=== PATIENT | female | born 1970 | race Caucasian/White ===

== ENCOUNTER 2018-02-10 08:15 | Outpatient (CLI) | payer BC | END 2018-02-10 08:16 | disposition home or self-care (01) | LOC: BICMAMMO 08:15 | PROVIDERS: ATTEND Family Medicine | DX: Z12.31 Encounter for screening mammogram for malignant neoplasm of breast (principal); Z80.3 Family history of malignant neoplasm of breast | CPT/HCPCS: 77063; 77067 ==

== ENCOUNTER 2019-02-15 07:51 | Outpatient (CLI) | payer BC ==
--- NOTE | 2019-02-15 08:32 | MMO ---
Bilateral MAMMO Bilat Screen [facility]. CLINICAL HISTORY: Patient is 48 years old and is seen for screening. The patient has no personal history of cancer. VIEWS: The views performed were: bilateral craniocaudal with tomosynthesis and bilateral mediolateral oblique with tomosynthesis. FILMS COMPARED: The present examination has been compared to prior imaging studies performed at [facility] on 03/10/2011, 11/11/2013, 01/15/2016, 01/19/2017 and 02/10/2018. MAMMOGRAM FINDINGS: There are scattered fibroglandular densities. There are benign appearing calcifications seen in both breasts. There are no suspicious masses, suspicious calcifications, or new areas of architectural distortion. IMPRESSION: THERE IS NO MAMMOGRAPHIC EVIDENCE OF MALIGNANCY. A ROUTINE FOLLOW-UP MAMMOGRAM IN 1 YEAR IS RECOMMENDED. THE RESULTS OF THIS EXAM WERE SENT TO THE PATIENT. ACR BI-RADS Category 2 - Benign finding MAMMOGRAPHY NOTE: 1. A negative mammogram report should not delay a biopsy if a dominant of clinically suspicious mass is present. 2. Approximately 10% to 15% of breast cancers are not detected by mammography. 3. Adenosis and dense breasts may obscure an underlying neoplasm.
== END 2019-02-15 07:52 | disposition home or self-care (01) ==
LOC: BICMAMMO 07:51
PROVIDERS: ATTEND Family Medicine Sports Medicine
DX: Z12.31 Encounter for screening mammogram for malignant neoplasm of breast (principal)
CPT/HCPCS: 77063; 77067

== ENCOUNTER 2021-10-18 12:00 | Outpatient (CLI) | payer BC | END 2021-10-18 12:01 | disposition home or self-care (01) | LOC: CT 12:00 | PROVIDERS: ATTEND Family Medicine Sports Medicine | DX: M54.6 Pain in thoracic spine (principal) | CPT/HCPCS: 74176 ==

== ENCOUNTER 2023-12-15 09:05 | Outpatient (CLI) | payer BC | END 2023-12-15 09:06 | disposition home or self-care (01) | LOC: SCSMRI 09:05 | PROVIDERS: ATTEND Otolaryngology | DX: J32.1 Chronic frontal sinusitis (principal); H74.8X2 Other specified disorders of left middle ear and mastoid | CPT/HCPCS: 70543 ==

== ENCOUNTER 2024-04-12 10:07 | Outpatient (CLI) | payer BC | END 2024-04-12 10:08 | disposition home or self-care (01) | LOC: SCSRAD 10:07 | PROVIDERS: ATTEND Nurse Practitioner Family | DX: S69.92XA Unspecified injury of left wrist, hand and finger(s), initial encounter (principal) ==